=== PATIENT | female | born 2000 | race Caucasian/White ===

== ENCOUNTER 2021-10-01 15:45 | Emergency (ER) | payer BC ==
[~2021-10-01] VITALS: Ht 157.5 cm; Wt 52.2 kg
[2021-10-01 15:45] VITALS: BP_SYST 121
[2021-10-01 17:03] LABS: BILIRUBIN,URINE NEGATIVE (NEGATIVE); BLOOD, URINE 1+ (NEGATIVE); COLOR,URINE YELLOW (YELLOW); GLUCOSE,URINE NEGATIVE (NEGATIVE); KETONES,URINE NEGATIVE (NEGATIVE); LEUKOCYTE ESTERASE ,URINE NEGATIVE (NEGATIVE); NITRITE, URINE NEGATIVE (NEGATIVE); PROTEIN URINE NEGATIVE (NEGATIVE); UROBILINOGEN,URINE 0.2 (0.2-1.0)
[2021-10-01] MEDS: NACL 0.9% 1,000 ML IV ONE (17:14)
[2021-10-01 17:24] LABS: CLARITY/URINE SLIGHTLY HAZY (CLEAR)
[2021-10-01 17:24] LABS: CALCIUM 8.1 mg/dL (8.4-11.0); CREATININE 0.58 mg/dL (0.55-1.30); POTASSIUM 3.8 mmol/L (3.5-5.1)
[2021-10-01 18:15] LABS: BACTERIA,URINE RARE /HPF (None Seen); MUCUS,URINE 1+ /LPF (None Seen); RBC,URINE 0-3 /HPF (0-3); WBC,URINE 0-3 /HPF (0-3)
[2021-10-01] MEDS ORDERED: IBUP-1969 PO (19:12)
[2021-10-01] MEDS: IBUPROFEN 600 MG TABLET PO ONE (19:41)
[2021-10-01 19:42] VITALS: BP_SYST 106
[2021-10-01 19:51] LABS: HEMATOCRIT 34.1 % (36-48); HEMOGLOBIN 11.6 g/dL (12.0-16.0); MEAN CORPUSCULAR HEMOGLOBIN 28 pg (27-31); MEAN CORPUSCULAR HGB CONC 34 % (32-36); MEAN CORPUSCULAR VOLUME 81 fL (79.0-98.0); PLATELET COUNT (AUTO) 312 K/uL (130-430); RED BLOOD CELL COUNT(AUTO) 4.19 MIL/uL (4.2-6.2); RED CELL DISTRIBUTION WIDTH 13.1 % (9.0-15.0); WHITE BLOOD COUNT (AUTO) 7.8 K/uL (4.5-11.0)
[2021-10-01 19:52] LABS: BASOPHILS % (AUTO) 0.3 % (0.0-2.0); EOSINOPHILS % (AUTO) 1.6 % (0.0-4.0); LYMPHOCYTES # (AUTO) 2.9 K/uL (1.0-5.5); LYMPHOCYTES % (AUTO) 36.6 % (20.5-51.5); MONOCYTES # (AUTO) 0.7 K/uL (0.0-1.0); MONOCYTES % (AUTO) 9.3 % (1.7-9.3); NEUTROPHILS # (AUTO) 4.1 K/uL (1.8-7.7); NEUTROPHILS % (AUTO) 52.2 % (40.0-70.0)
[2021-10-01 19:53] LABS: EOSINOPHILS # (AUTO) 0.1 K/uL (0.0-0.4)
== END 2021-10-01 19:42 | disposition home or self-care (01) ==
LOC: SED 15:45
DX: N93.9 Abnormal uterine and vaginal bleeding, unspecified (principal); Z79.899 Other long term (current) drug therapy
CPT/HCPCS: 36415; 76830; 76857; 80048; 81000; 81025; 85025; 96360; 99284; J7030